=== PATIENT | male | born 1980 ===

== ENCOUNTER 2022-08-29 15:45 | Emergency (ER) | payer SELFPAY ==
[2022-08-29] MEDS ORDERED: Sodium Chloride 0.9% 1,000 ML IV ONE (15:59)
[2022-08-29 16:49] LABS: CARBON DIOXIDE,CO2 27.7 mmol/L (21.0-32.0); POTASSIUM,K 4.2 mmol/L (3.5-5.1)
[2022-08-29] MEDS ORDERED: Iopamidol 755 MG/ML 500 ML Multipack Bottle IVPUSH ONE (17:04)
== END 2022-08-29 17:52 | disposition home or self-care (01) ==
LOC: MW.ED 15:45
DX: R10.31 Right lower quadrant pain (principal); E03.9 Hypothyroidism, unspecified; Z79.899 Other long term (current) drug therapy; Z20.822 Contact with and (suspected) exposure to COVID-19
CPT/HCPCS: 36415; 74177; 80053; 81003; 85025; 87635; 96360; 99284; J7030; Q9967; U0002